=== PATIENT | male | born 1985 | race Caucasian/White ===

== ENCOUNTER 2022-08-23 08:30 | Emergency (ER) | payer OTHER, SELFPAY ==
--- NOTE | 2022-08-23 08:34 | ED.SKABFB ---
HPI - Skin/Abscess/Foreign Bdy General Chief complaint: Dental/Oral Stated complaint: FACIAL SWELLING Time Seen by Provider: 08/23/22 08:33 Source: patient Mode of arrival: ambulatory Limitations: no limitations History of Present Illness HPI narrative: Talha is a 37-year-old male patient presenting to the clinic today with complaints of facial swelling times. He report he had some throbbing dental pain last night and today his right upper side of his face is swollen. Noticed a swollen blood vessel in his mouth. He also reports he would like to have a rash looked out on his right lower leg. States the rash is raised and itchy. Unknown cause of rash. He denies any environmental changes. He denies any fever or chills. Related Data Home Medications Medication Instructions Recorded Confirmed amitriptyline 50 mg tablet 50 mg PO DAILY 08/23/22 08/23/22 gabapentin 300 mg capsule 300 mg PO DAILY 08/23/22 08/23/22 naloxone 2 mg/actuation nasal spray 2 mg intranasal DAILY 08/23/22 08/23/22 Allergies Allergy/AdvReac Type Severity Reaction Status Date / Time Penicillins Allergy Mild Unknown Verified 08/11/20 23:23 amoxicillin Allergy Unknown Pt does Verified 08/11/20 23:23 not remember reaction animal dander Allergy Unknown Pt does Verified 08/11/20 23:23 not remember reaction erythromycin base Allergy Unknown Nausea Verified 08/11/20 23:23 Pertussis Vaccines Allergy Unknown Pt does Verified 08/11/20 23:23 not remember reaction Review of Systems Review of Systems: Pertinent positives per HPI. Patient denies any fever, chills, headache, visual changes, dizziness, cough, shortness of breath, chest pain, palpitations, nausea, vomiting, diarrhea, constipation, abdominal pain, or any urinary issues. [facility] Family History Family History Sibling Cerebrovascular accident Family history of malignant neoplasm Mother Family history of arthritis Family history of malignant neoplasm of breast in first degree relative Social History Social History Smoking status: Current every day smoker Alcohol intake: never Comments At the time of my signature, I reviewed and agree with the nursing past medical, surgical, social, and family history. There is no relevant family history pertinent to the patient complaint. Exam Narrative: General: Well-developed, well nourished, in no apparent distress Head: Normocephalic, atraumatic Eyes: Pupils equally round and reactive to light bilaterally, EOM intact, sclera and conjunctive clear, no discharge, lids normal Ears: TMs intact and clear, ear canals clear, no drainage, grossly hearing normal. Nose: Nares patent, no discharge, no inflammation, no sinus tenderness. Mouth: Oral pharynx without lesions or masses, poor dentition, MMM. Decayed, fracture, infected number 2 molar with probable dental abscess. Tender to palpation without fluctuance Neck: Supple, trachea midline, no enlargement of anterior or posterior cervical nodes, no thyroid masses or goiter palpable. Cardio: Regular rate and rhythm, s1 and s2 normal, no murmur appreciated. Resp: Clear to auscultation bilaterally, no rhonchi, rales, wheezing or rubs Integumentary: Mcgrew, warm, and dry, intact without lesion, red, raised, itchy rash to the right anterior lower leg Course Course Emergency Course: Portions of this record may have been created with voice recognition software. Level of Care: Express Care Visit Vital Signs Vital signs: Vital signs reviewed MDM - Skin/Abscess/Foreign Bdy MDM Narrative Medical decision making narrative: At the time of visit patient is resting comfortably on the exam table. I suspect patient has right leg dermatitis and a dental abscess to the right upper maxilla. Prescription for clindamycin was sent to the phar
[2022-08-23 08:45] VITALS: BP 153/107; PULSE 105; RESP 20; TEMP 36.9; O2SAT 100
== END 2022-08-23 08:54 | disposition home or self-care (01) ==
PROVIDERS: Emergency Provider Nurse Practitioner Family; PCP Family Medicine
DX: K04.7 Periapical abscess without sinus (principal); L30.9 Dermatitis, unspecified; F17.210 Nicotine dependence, cigarettes, uncomplicated
CPT/HCPCS: 99213; G0463